=== PATIENT | female | born 1965 | race Caucasian/White ===

== ENCOUNTER 2017-11-17 15:17 | Emergency (ER) | payer MEDICAID ==
[2017-11-17] MEDS: CLINDAMYCIN 300 MG INJ IM (16:54)
[2017-11-17] MEDS: KETOROLAC 60 MG INJ IM (16:54)
== END 2017-11-17 17:16 | disposition home or self-care (01) ==
LOC: FTE 15:17
DX: K04.7 Periapical abscess without sinus (principal)
CPT/HCPCS: 96372; 99284-25